=== PATIENT | male | born 1955 ===

== ENCOUNTER 2018-01-13 14:03 | Emergency (ER) | payer MEDICARE, OTHER ==
--- NOTE | 2018-01-13 15:49 | UC ---
Lower Extremity/Ankle HPI - HPI Summary HPI Summary: Step collapsed last night and come down on the right foot with all his weight. Mild pain last night. Much worse pain this morning. - History of Current Complaint Chief Complaint: UCLowerExtremity Stated Complaint: RIGHT FOOT COMP Time Seen by Provider: 01/13/18 15:40 Hx Obtained From: Patient Onset/Duration: Sudden Onset Severity Initially: Mild Severity Currently: Moderate Pain Intensity: 8 Aggravating Factor(s): Standing, Ambulation Alleviating Factor(s): Rest, Elevation Able to Bear Weight: Yes - Allergies/Home Medications Allergies/Adverse Reactions: Allergies Allergy/AdvReac Type Severity Reaction Status Date / Time No Known Allergies Allergy Verified 01/13/18 14:46 PMH/Surg Hx/FS Hx/Imm Hx Respiratory History: COPD - Surgical History Surgical History: Yes Surgery Procedure, Year, and Place: 1978 RIGHT FEMUR SURGERY, [facility]. 1978 [place] [place] 1975 BILATERAL HERNIA REPAIR, [facility]. TONSILLECTOMY, [facility]. 1987 FRACTURED JAW, [facility]. 2 TUMOR SURGERIES - UNDER LEFT ARM A CHILD, [facility]. TUBE PLACED IN RIGHT EAR-AND NOSE SURGERY-[facility]; EAR TUBES REMOVED OCTOBER 2017. RIGHT INDEX AND MIDDLE FINGER RELEASE-[facility]. RIGHT WRIST, 2016, [facility] - Family History Known Family History: Positive: Cardiac Disease, Hypertension, Diabetes - Social History Occupation: Disabled Lives: Alone Alcohol Use: None Substance Use Type: None Smoking Status (MU): Heavy Every Day Tobacco Smoker Type: Cigarettes Amount Used/How Often: 1/2 PPD OFF AND ON 255 YEARS Length of Time of Smoking/Using Tobacco: On and Off for 40 Years Have You Smoked in the Last Year: No - Immunization History Most Recent Influenza Vaccination: April 2015 Review of Systems Respiratory: Shortness Of Breath, Cough Musculoskeletal: Arthralgia - right foot Is Patient Immunocompromised?: No All Other Systems Reviewed And Are Negative: Yes Physical Exam Triage Information Reviewed: Yes Appearance: Well-Appearing, Pain Distress - mild, Thin Vital Signs: Initial Vital Signs Temp 99.4 F 01/13/18 14:47 Pulse 76 01/13/18 14:47 Resp 17 01/13/18 14:47 BP 160/104 01/13/18 14:47 Pulse Ox 97 01/13/18 14:47 Vital Signs Reviewed: Yes Eyes: Positive: Conjunctiva Clear Respiratory: Positive: Decreased breath sounds, Wheezing - with forced expiration Cardiovascular: Positive: RRR, No Murmur Musculoskeletal Exam: Normal Neurological: Positive: Other: - hypersensitive to pinprick down lateral right lower leg into the dorsal foot. Psychological Exam: Normal Skin: Positive: Other - lateral swelling upper right lower leg. Lower Extremity Course/Dx - Differential Dx/Diagnosis Differential Diagnosis/HQI/PQRI: Cellulitis, Contusion, Fracture (Closed), Strain Provider Diagnoses: Contusion right leg and right foot. Nerve contusion. Neuritis right leg Discharge - Sign-Out/Discharge Documenting (check all that apply): Discharge/Admit/Transfer - Discharge Plan Condition: Stable Disposition: HOME Prescriptions: Gabapentin CAP(*) [Neurontin 300 CAP(*)] 300 mg PO TID #90 cap Patient Education Materials: Contusion in Adults (ED), Foot Contusion (ED), Gabapentin (By mouth) Referrals: Mallorie David MD [Primary Care Provider] - 1 Week (Recheck nerve injury and blood pressure.) Additional Instructions: GABAPENTIN: Gabapentin is an anti-seizure medication that is more often used for nerve pain. It helps to stabilize the nerve to stop the pain. Its primary side effect is sedation which will improve over time. Most people will start with only one capsule 1 to 2 hours before bed, but if your pain is more severe you may want to start with one capsule twice a day. If the pain is still an issue after another 1-2days the dose may be increased to a maximum of 1 capsule 3 times a day. Decrease the dose by one capsule a day if there is excessive sedation or it is not working. You can also decrease it to discontinue it if the pain is resolving. - Billing Disposition and Condition Condition: STABLE Disposition: Home
[2018-01-13 15:54] VITALS: BP 126/82
== END 2018-01-13 16:05 | disposition home or self-care (01) ==
LOC: UCCORT 14:03
DX: S84.91XA Injury of unspecified nerve at lower leg level, right leg, initial encounter (principal); W17.89XA Other fall from one level to another, initial encounter; Y93.01 Activity, walking, marching and hiking; Y92.9 Unspecified place or not applicable; G62.9 Polyneuropathy, unspecified; S80.11XA Contusion of right lower leg, initial encounter; S90.31XA Contusion of right foot, initial encounter; F17.210 Nicotine dependence, cigarettes, uncomplicated
CPT/HCPCS: 99212; G0463